=== PATIENT | female | born 1995 | race Caucasian/White ===

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

== ENCOUNTER 2017-11-19 02:23 | Emergency (ER) | payer BC, OTHER ==
[2017-11-19] MEDS ORDERED: METOCLOPRAMIDE HCL INJ/PF 10 MG/2 ML SDV IV ONE (03:15)
--- NOTE | 2017-11-19 03:22 | ER Document Report ---
ED General - General Chief Complaint: Abdominal pain, N/V Stated Complaint: NAUSEA/VOMITING Time Seen by Provider: 11/19/17 03:07 Notes: Patient is a 22-year-old female who recently had a positive test a week and half ago. Tonight she started having epigastric abdominal pain with vomiting. Some pain rating to her lower chest. Says that she has been nauseous for the last several days but did not vomit until tonight. No fevers. No diarrhea. No blood in her stool. No blood in her vomit. She said that she had some vaginal bleeding approximately 3 weeks ago. No vaginal bleeding since then. She said it was just 1 day of vaginal bleeding. She saw her OB doctor in half weeks ago and has a positive . She was given vitamins but she does not want to start taking them until she has a blood test that is positive. This is her first . No abnormal vaginal discharge. No dysuria. TRAVEL OUTSIDE OF THE [place] IN LAST 30 DAYS: No - Related Data Allergies/Adverse Reactions: Penicillins Allergy (Verified 12/23/16 19:05) Past Medical History - Social History Smoking Status: Never Smoker Frequency of alcohol use: None Drug Abuse: None Family History: Reviewed & Not Pertinent, Other - hemophilia Renal/ Medical History: Denies: Hx Peritoneal Dialysis - Immunizations Immunizations up to date: Yes Review of Systems - Review of Systems Notes: My Normal Review Basic REVIEW OF SYSTEMS: CONSTITUTIONAL : Denies fever, chills, or sweats. Denies recent illness. EENT: Denies eye, ear, throat, or mouth pain or symptoms. Denies nasal or sinus congestion. RESPIRATORY: Denies cough, cold, or chest congestion. Denies shortness of breath, difficulty breathing, or wheezing. GASTROINTESTINAL: Epigastric abdominal pain and vomiting. GENITOURINARY: Denies difficulty urinating, painful urination, burning, frequency, or blood in urine. FEMALE GENITOURINARY: Denies vaginal bleeding, abnormal or irregular periods. LMP: Currently . MUSCULOSKELETAL: Denies neck or back pain or joint pain or swelling. SKIN: Denies rash or skin lesions. NEUROLOGICAL: Denies altered mental status or loss of consciousness. Denies headache. Denies weakness or paralysis or loss of use of either side. Denies problems with gait or speech. Denies sensory or motor loss. ALL OTHER SYSTEMS REVIEWED AND NEGATIVE. Physical Exam - Vital signs Vitals: Temp Pulse Resp BP Pulse Ox 98.4 F 100 16 115/67 99 11/19/17 02:51 11/19/17 02:51 11/19/17 02:51 11/19/17 02:51 11/19/17 02:51 - Notes Notes: General Appearance: Well nourished, alert, cooperative, no acute distress, no obvious discomfort. Vitals: reviewed, See vital signs table. Head: no swelling or tenderness to the head Eyes: PERRL, EOMI, Conjuctiva clear Mouth: No decreasd moisture Neck: Supple, no neck tenderness, No thyromegaly Lungs: No wheezing, No rales, No rhonci, No accessory muscle use, good air exchange bilaterally. Heart: Normal rate, Regular rythm, No murmur, no rub Abdomen: Normal BS, soft, No rigidity, mild epigastric abdominal tenderness to palpation, No guarding, no rebound, no abdominal masses, no organomegaly Extremities: strength 5/5 in all extremities, good pulses in all extremities, no swelling or tenderness in the extremities, no edema. Skin: warm, dry, appropriate color, no rash Neuro: speech clear, oriented x 3, normal affect, responds appropriately to questions. Course - Re-evaluation Re-evalutation: 11/19/17 04:18 Patient's last true menstrual period was 2-3 months ago. She did have that one day of heavy bleeding approximately 2-3 weeks ago followed by a positive test just a week and half ago. This suggests to me that she most likely had a very early that resulted in miscarriage. Now her test is negative. She does family history of being Rh-. We will do a program workup because if she is Rh- and did have a miscarriage she should receive RhoGam to protect each her pregnancies. She does have upper abdominal pain with vomiting and some leukocytosis. I will obtain ultrasound to make sure she does not have gallbladder issues causing her symptoms. Patient is agreeable to plan. 11/19/17 06:49 I went to go reevaluate the patient she started vomiting again. Patient says she just started the whole large cup of jovany giselle. She thinks this is why she vomited. Regardless we will give her another dose of medicine and then reassess her and have her try oral liquids. If the patient continues to do well she will be discharged home with follow-up with GI as well as prescription medications. If she does not do well and continues to have nausea vomiting she may eventually be admitted for intractable vomiting. Patient agrees with plan. Patient encouraged to return to ER if she has recurrent vomiting, fevers, worsening abdominal pain, or feels unwell. Dictation of this chart was performed using voice recognition software; therefore, there may be some unintended grammatical errors. - Vital Signs Vital signs: Temp Pulse Resp BP Pulse Ox 98.5 F 100 16 95/66 L 98 11/19/17 08:45 11/19/17 08:45 11/19/17 08:45 11/19/17 08:45 11/19/17 08:45 - Laboratory Result Diagrams: 11/19/17 03:35 11/19/17 03:35 Laboratory results interpreted by me: 11/19/17 03:35 WBC 15.0 H Seg Neutrophils % 86.4 H Lymphocytes % 7.0 L Absolute Neutrophils 13.0 H Discharge - Discharge Clinical Impression: Fatty liver Vomiting Qualifiers: Vomiting type: unspecified Vomiting Intractability: unspecified Nausea presence : with nausea Qualified Code(s): R11.2 - Nausea with vomiting, unspecified Abdominal pain Qualifiers: Abdominal location: epigastric Qualified Code(s): R10.13 - Epigastric pain Disposition: HOME, SELF-CARE Additional Instructions: Your ultrasound does show evidence of a fatty liver. This can be related to diet or potentially something called Non-Alcoholic Steato Hepatitis (PEREZ). Your liver enzymes are normal and therefore I think PEREZ is less likely. It is important you change your diet to avoid fatty foods, fried foods, and acidic foods. I also suspect your pain and vomiting is probably related to gastritis or a non-bleeding ulcer. We will place you on Omeprazole which reduces the amount of acid in your stomach. Your gallbladder did not have any signs of infection or inflammation on the ultrasound. You can still have dysfunction of your gallbladder which is when your gallbladder spasms after eating. I think this is less likely. The work up for fatty liver, gastritis and possible biliary dysfunction can all be done through a GI physician. Please call the GI physician, Dr. Schuler, to set up a close follow up appointment. Please eat a very bland diet and take the medications as prescribed. Please avoid alcohol and NSAID medications such as Motrin, Ibuprofen, and Aleve. Please return to the ER immediately if you have recurrent vomiting not responding to the nausea medicines, worsening abdominal pain, or fevers. Your test was negative. I suspect you had a very early miscarriage. We have given you rhogam which protects your future pregnancies. Prescriptions: Omeprazole Magnesium [Prilosec Otc] 20 mg PO BID #30 tablet. Ondansetron [Zofran Odt 4 mg Tablet] 1 tab PO Q4H PRN #15 tab.rapdis PRN Reason: For Nausea/Vomiting Promethazine HCl [Phenergan 25 mg Tablet] 1 tab PO Q6H PRN #15 tablet PRN Reason: Forms: Special Work Note, Return to Work Referrals: DIANNA SCHULER MD [ACTIVE STAFF] - Follow up in 3-5 days
[2017-11-19 03:53] LABS: ABSOLUTE LYMPHOCYTES (AUTO) 1.1 10^3/uL (0.5-4.7); ABSOLUTE MONOCYTES (AUTO) 0.9 10^3/uL (0.1-1.4); BASOPHILS % (AUTO) 0.2 % (0-2); EOSINOPHILS % (AUTO) 0.3 % (0-6); HEMATOCRIT 38.7 % (36.0-47.0); HEMOGLOBIN 13.1 g/dL (12.0-15.5); MEAN CORPUSCULAR HEMOGLOBIN 30.3 pg (27.0-33.4); MEAN CORPUSCULAR HGB CONC 33.8 g/dL (32.0-36.0); MEAN CORPUSCULAR VOLUME 89 fl (80-97); MONOCYTES % (AUTO) 6.1 % (3-13); PLATELET COUNT 279 10^3/uL (150-450); RED BLOOD COUNT 4.33 10^6/uL (3.72-5.28); RED CELL DISTRIBUTION WIDTH 12.5 % (11.5-14.0); SEGMENTED NEUTROPHILS % (AUTO) 86.4 % (42-78); TOTAL CELLS COUNTED % (AUTO) 100 %
[2017-11-19 03:56] LABS: ALANINE AMINOTRANSFERASE 27 U/L (9-52); ALBUMIN 4.2 g/dL (3.5-5.0); ALKALINE PHOSPHATASE 55 U/L (38-126); ANION GAP 10 (5-19); ASPARTATE AMINO TRANSFERASE 17 U/L (14-36); BILIRUBIN,TOTAL 0.4 mg/dL (0.2-1.3); BLOOD UREA NITROGEN 10 mg/dL (7-20); CALCIUM 9.5 mg/dL (8.4-10.2); CARBON DIOXIDE 24 mmol/L (22-30); CHLORIDE 106 mmol/L (98-107); GLUCOSE 95 mg/dL (75-110); POTASSIUM 4.1 mmol/L (3.6-5.0); SODIUM 140.2 mmol/L (137-145); TOTAL PROTEIN 6.4 g/dL (6.3-8.2)
[2017-11-19] MEDS: NORMAL SALINE 1000 ML 1,000 ML IV PRN ×2 (04:15→04:36)
[2017-11-19 06:12] LABS: APPEARANCE,URINE CLEAR; BILIRUBIN,URINE NEGATIVE (NEGATIVE); GLUCOSE, URINE NEGATIVE (NEGATIVE); KETONES,URINE NEGATIVE (NEGATIVE); LEUKOCYTE ESTERASE,URINE NEGATIVE (NEGATIVE); NITRITE,URINE NEGATIVE (NEGATIVE); PROTEIN,URINE NEGATIVE (NEGATIVE); URINE SPECIFIC GRAVITY 1.009; UROBILINOGEN,URINE NEGATIVE mg/dL (<2.0)
--- NOTE | 2017-11-19 06:20 | RADIOLOGY REPORT (SQ) ---
EXAM DESCRIPTION: U/S ABDOMEN LTD W/DOPPLER CLINICAL HISTORY: 22 years, Female, upper abdominal pain and vomiting COMPARISON: None. TECHNIQUE: Transabdominal. LIMITATIONS: None. FINDINGS: Moderate hepatic steatosis. Gallbladder, negative sonographic Cmbride's test, pancreas, aorta, inferior-extrahepatic biliary ductal system including a 0.2 cm diameter common duct, and 10 cm right kidney appear otherwise unremarkable. No significant free fluid. IMPRESSION: No acute findings. Moderate hepatic steatosis.
[2017-11-19 06:21] LABS: COLOR,URINE YELLOW
[2017-11-19] MEDS ORDERED: ONDANSETRON HCL INJ/PF 4 MG/2 ML SDV IV ONE (06:28)
[2017-11-19] MEDS ORDERED: PROMETHAZINE HCL INJ 25 MG/1 ML VIAL IM ONE (06:28)
[2017-11-19 08:47] VITALS: BP 95/66
== END 2017-11-19 08:45 | disposition home or self-care (01) ==
LOC: ER 02:23
DX: O26.91 Pregnancy related conditions, unspecified, first trimester (principal); K76.0 Fatty (change of) liver, not elsewhere classified; R10.13 Epigastric pain; O21.9 Vomiting of pregnancy, unspecified; Z88.0 Allergy status to penicillin
CPT/HCPCS: 99284; 96372; 96374; 86900; 86901; 36415; 86850; 84702; 83735; 85025; 80053; 81001; 76705; 93976; J2790; J2765; J2550; J2405; J7030

== ENCOUNTER → 2017-11-28 | Day surgery (SDC) | payer OTHER ==
[2017-11-28 08:53] VITALS: BP 111/62
--- NOTE | 2017-11-28 11:35 | PDOC PROGRESS REPORT ---
Subjective Progress Note for:: 11/28/17 Subjective:: Patient was seen prior to her upper endoscopy this morning. She underwent a urine test that showed that she was positive. Anesthesia saw her. She would not be able to be sedated with propofol. Prior to her leaving I had asked her about her possible history and date. She apparently presented in the middle of October with vaginal bleeding. She was seen in the ED. She underwent at that time a urine test. She was told that she had a miscarriage. Patient was given some RhoGam. She underwent a quantitative H CG today. It was noted at 362. She will need to be referred to OB. The procedure was deferred. She was being seen for noncardiac chest pain, gastroesophageal reflux disease. Discharge vital signs were stable. We will go ahead and reschedule her procedure as needed. Reason For Visit: R10.13 EPIGASTRIC PAIN Physical Exam Vital Signs: Temp Pulse Resp BP Pulse Ox 98.6 F 83 18 111/62 98 11/28/17 08:51 11/28/17 08:51 11/28/17 08:51 11/28/17 08:51 11/28/17 08:51 Intake & Output 11/27/17 11/28/17 11/29/17 06:59 06:59 06:59 Intake Total 0 Balance 0 Weight 63.5 kg 63.5 kg General appearance: PRESENT: no acute distress, well-developed, well-nourished Head exam: PRESENT: atraumatic, normocephalic Eye exam: PRESENT: EOMI, PERRLA. ABSENT: nystagmus, periorbital swelling, scleral icterus Mouth exam: PRESENT: moist, neck supple Neck exam: ABSENT: meningismus, tenderness, thyromegaly Respiratory exam: PRESENT: symmetrical, unlabored. ABSENT: tachypnea, wheezes Cardiovascular exam: PRESENT: +S1, +S2 GI/Abdominal exam: PRESENT: soft. ABSENT: rebound, rigid, tenderness Extremities exam: ABSENT: tenderness Musculoskeletal exam: PRESENT: full ROM Neurological exam: PRESENT: oriented to time, oriented to situation, CN II-XII grossly intact Psychiatric exam: PRESENT: appropriate affect Skin exam: PRESENT: normal color. ABSENT: mottled, pallor, urticaria, vesicles Assessment & Plan - Diagnosis (1) Positive urine test Plan: Patient had a positive urine test prior to her being sedated for planned procedure. Procedure was canceled based on the assumption that she was . She was told that she had a miscarriage in the past. Her beta hCG is 362. Based on her recollection of events it is unclear if this represents a value that is decreasing or increasing. Would be advisable to have her see FRENCH WEAVER. Recheck her quantitative hCG on Friday. Further recommendations to follow. - Time Time Spent with patient: 25-34 minutes
== END ==
LOC: OROUT 08:23
PROVIDERS: ATTEND Internal Medicine Gastroenterology
DX: Z32.01 Encounter for pregnancy test, result positive (principal); Z53.8 Procedure and treatment not carried out for other reasons; K21.9 Gastro-esophageal reflux disease without esophagitis; R07.89 Other chest pain
CPT/HCPCS: 36415; 81025; 84702

== ENCOUNTER 2018-07-08 16:35 | Outpatient (CLI) | payer MEDICAID, OTHER ==
[2018-07-08 17:34] LABS: URINE AMPHETAMINES SCREEN NEGATIVE; URINE BARBITURATES SCREEN NEGATIVE; URINE BENZODIAZEPINES SCREEN NEGATIVE; URINE COCAINE SCREEN NEGATIVE; URINE MARIJUANA (THC) SCREEN NEGATIVE; URINE METHADONE SCREEN NEGATIVE; URINE PHENCYCLIDINE SCREEN NEGATIVE
[2018-07-08 17:36] LABS: APPEARANCE,URINE CLEAR; BILIRUBIN,URINE NEGATIVE (NEGATIVE); COLOR,URINE YELLOW; GLUCOSE, URINE NEGATIVE (NEGATIVE); KETONES,URINE NEGATIVE (NEGATIVE); LEUKOCYTE ESTERASE,URINE TRACE (NEGATIVE); NITRITE,URINE NEGATIVE (NEGATIVE); PROTEIN,URINE NEGATIVE (NEGATIVE); URINE SPECIFIC GRAVITY 1.016
== END 2018-07-08 18:09 | disposition home or self-care (01) ==
LOC: ER 16:35 → LC 18:09
PROVIDERS: ATTEND Student in an Organized Health Care Education/Training Program
PROC: 4A1HXCZ Monitoring of Products of Conception, Cardiac Rate, External Approach (ICD-10-PCS; principal; 2018-07-08)
DX: Z34.93 Encounter for supervision of normal pregnancy, unspecified, third trimester (principal)
CPT/HCPCS: 59025; 80307; 81001; 84112

== ENCOUNTER 2018-07-23 12:21 | Outpatient (CLI) | payer MEDICAID ==
[2018-07-23 13:07] LABS: APPEARANCE,URINE CLEAR; BILIRUBIN,URINE NEGATIVE (NEGATIVE); COLOR,URINE COLORLESS; GLUCOSE, URINE NEGATIVE (NEGATIVE); KETONES,URINE NEGATIVE (NEGATIVE); LEUKOCYTE ESTERASE,URINE NEGATIVE (NEGATIVE); NITRITE,URINE NEGATIVE (NEGATIVE); PROTEIN,URINE NEGATIVE (NEGATIVE); URINE SPECIFIC GRAVITY 1.002; UROBILINOGEN,URINE NEGATIVE mg/dL (<2.0)
--- NOTE | 2018-07-23 14:04 | Non Stress Test Report ---
Non Stress Test Datetime Report Generated by CPN: 07/23/2018 14:04 DEMOGRAPHIC EGA NST: 37.4 INDICATION Indication for Study: Other Indication for Study (NST) Other: LABOR CHECK MONITORING Monitor Explained: Monitor Explained; Test Explained; Patient Verbalized Understanding Time on Monitor: 07/23/2018 12:48 Time off Monitor: 07/23/2018 13:48 NST Duration: 60 NST INTERVENTIONS NST Interventions: PO Hydration; Reposition Patient Physician Notified NST: DR SANTA BABY A: [id number] BABY A Movement : Present Contraction Frequency : X 1 FHR Baseline : 145 Accelerations : 15X15 Decelerations : None Variability : Moderate 6-25bpm NST Review: Meets Criteria for Reactive NST NST Review and Verified By : Analisa Camp RNC NST Results: Reactive NST REPORT Report Trigger: Send Report
[2018-07-23 14:38] LABS: URINE AMPHETAMINES SCREEN NEGATIVE; URINE BARBITURATES SCREEN NEGATIVE; URINE BENZODIAZEPINES SCREEN NEGATIVE; URINE COCAINE SCREEN NEGATIVE; URINE MARIJUANA (THC) SCREEN NEGATIVE; URINE METHADONE SCREEN NEGATIVE
[2018-07-23 14:46] LABS: URINE PHENCYCLIDINE SCREEN NEGATIVE
== END 2018-07-23 13:57 | disposition home or self-care (01) ==
LOC: LC 12:21
PROVIDERS: ATTEND Student in an Organized Health Care Education/Training Program
PROC: 4A1HXCZ Monitoring of Products of Conception, Cardiac Rate, External Approach (ICD-10-PCS; principal; 2018-07-23)
DX: O47.1 False labor at or after 37 completed weeks of gestation (principal); Z3A.37 37 weeks gestation of pregnancy
CPT/HCPCS: 59025; 80307; 81005

== ENCOUNTER 2018-08-07 23:06 | Outpatient (CLI) | payer MEDICAID ==
[2018-08-07 23:32] LABS: APPEARANCE,URINE TURBID; BILIRUBIN,URINE NEGATIVE (NEGATIVE); COLOR,URINE YELLOW; GLUCOSE, URINE NEGATIVE (NEGATIVE); KETONES,URINE NEGATIVE (NEGATIVE); LEUKOCYTE ESTERASE,URINE TRACE (NEGATIVE); NITRITE,URINE NEGATIVE (NEGATIVE); PROTEIN,URINE NEGATIVE (NEGATIVE); URINE SPECIFIC GRAVITY 1.015
[2018-08-07 23:49] LABS: URINE AMPHETAMINES SCREEN NEGATIVE; URINE BARBITURATES SCREEN NEGATIVE; URINE BENZODIAZEPINES SCREEN NEGATIVE; URINE COCAINE SCREEN NEGATIVE; URINE MARIJUANA (THC) SCREEN NEGATIVE; URINE METHADONE SCREEN NEGATIVE; URINE PHENCYCLIDINE SCREEN NEGATIVE
--- NOTE | 2018-08-08 02:09 | Non Stress Test Report ---
Non Stress Test Datetime Report Generated by CPN: 08/08/2018 02:09 DEMOGRAPHIC Test Number: 3 EGA NST: 39.5 INDICATION Indication for Study: Other Indication for Study (NST) Other: Labor Check VITAL SIGNS Temperature - NST: 96.7 Pulse - NST: 96 RESP - NST: 14 NBPSYS NST: 119 NBPDIA NST: 73 URINE RESULTS Urine Protein, NST: Negative Urine Ketones - NST: Negative Urine Glucose - NST: Negative Urine Blood - NST: Negative MONITORING Monitor Explained: Monitor Explained; Test Explained; Patient Verbalized Understanding Time on Monitor: 08/07/2018 21:32 Time off Monitor: 08/08/2018 00:58 NST Duration: 206 NST INTERVENTIONS NST Interventions: PO Hydration Physician Notified NST: Dr. Albert BABY A: [id number] BABY A Movement : Present Contraction Frequency : None noted FHR Baseline : 145 Accelerations : 15X15 Decelerations : None Variability : Moderate 6-25bpm NST Review: Meets Criteria for Reactive NST NST Review and Verified By : KKristen Montanezco, RN NST Results: Reactive NST REPORT Report Trigger: Send Report
== END 2018-08-08 01:17 | disposition home or self-care (01) ==
LOC: LC 23:06
PROVIDERS: ATTEND Obstetrics & Gynecology
PROC: 4A1HXCZ Monitoring of Products of Conception, Cardiac Rate, External Approach (ICD-10-PCS; principal; 2018-08-07)
DX: O46.93 Antepartum hemorrhage, unspecified, third trimester (principal); Z3A.39 39 weeks gestation of pregnancy
CPT/HCPCS: 59025; 80307; 81005

== ENCOUNTER 2018-08-08 21:25 | Inpatient (IN) | payer MEDICAID ==
[2018-08-08] MEDS ORDERED: RINGERS SOLUTION,LACTATED 1,000 ML IV PRN (22:04)
[2018-08-08] MEDS ORDERED: OXYTOCIN 10 UNIT/ML VIAL ONE (22:16)
[2018-08-08] MEDS ORDERED: MISOPROSTOL 0.2 MG TABLET ONE (22:16)
[2018-08-08] MEDS ORDERED: LIDOCAINE 1% INJ-PF (10 MG/ML) 30 ML SDV ONE (22:16)
[2018-08-08] MEDS ORDERED: OXYTOCIN/NORMAL SALINE 20 UNIT/1,000 ML RTUINJ ONE (22:16)
[2018-08-08 23:28] LABS: HEMATOCRIT 34.1 % (36.0-47.0); HEMOGLOBIN 11.1 g/dL (12.0-15.5); MEAN CORPUSCULAR HEMOGLOBIN 26.1 pg (27.0-33.4); MEAN CORPUSCULAR HGB CONC 32.4 g/dL (32.0-36.0); MEAN CORPUSCULAR VOLUME 81 fl (80-97); PLATELET COUNT 233 10^3/uL (150-450); RED BLOOD COUNT 4.23 10^6/uL (3.72-5.28); RED CELL DISTRIBUTION WIDTH 15.6 % (11.5-14.0); WHITE BLOOD COUNT 24.5 10^3/uL (4.0-10.5)
[2018-08-09 00:07] LABS: ABSOLUTE LYMPHOCYTES# (MANUAL) 2.2 10^3/uL (0.5-4.7); ABSOLUTE MONOCYTES # (MANUAL) 1.2 10^3/uL (0.1-1.4); ABSOLUTE NEUTROPHILS# (MANUAL) 21.1 10^3/uL (1.7-8.2); BASOPHILS % (MANUAL) 0 % (0-2); EOSINOPHILS % (MANUAL) 0 % (0-6); LYMPHOCYTES % (MANUAL) 9 % (13-45); MONOCYTES % (MANUAL) 5 % (3-13); SEGMENTED NEUTROPHILS % (MAN) 86 % (42-78); TOTAL CELLS COUNTED 100
[2018-08-09 00:08] LABS: ANISOCYTOSIS SLIGHT; PLATELET COMMENT ADEQUATE; PLATELET GIANT PRESENT; POIKILOCYTOSIS SLIGHT; POLYCHROMASIA SLIGHT; TOXIC GRANULATION SLIGHT; TOXIC VACUOLATION PRESENT
--- NOTE | 2018-08-09 01:13 | Admission Physical ---
Datetime Report Generated by CPN: 08/09/2018 01:13 CURRENT ADMISSION Chief Complaint: Uterine Contractions Indication for Induction: Not Applicable Admit Impression : Term, Intrauterine ; Active Labor; Intact Membranes Admit Plan: Admit to Unit; Initiate Labor Protocol ALLERGIES Medication Allergies: Yes Medication Allergies: Penicillins (08/08/2018) Latex: No Latex Allergies OBSTETRICAL HISTORY EDC: 08/09/2018 00:00 : 1 Para: 0 Term: 0 : 0 SAB: 0 IAB: 0 Ectopic: 0 Livin Cesareans: 0 VBACs: 0 Multiple Births: 0 Gestational Diabetes: No Rh Sensitization: No Incompetent Cervix: No ZAIDA: No Infertility: No ART Treatment: No Uterine Anomaly: No IUGR: No Hx Previous C/S: No Macrosomia: No Hx Loss/Stillborn: No PIH: No Hx : No Placenta Previa/Abruption: No Depression/PP Depression: No PTL/PROM: No Post Hemorrhage: No Current Procedures: Ultrasound; NST Obstetrical History Comments: G1: current SEE RECORDS Alcohol: No Marijuana : No Cocaine: No Other Illicit Drugs: No Cigarettes: Never Smoker. [id number] MEDICAL HISTORY Diabetes: No Blood Transfusion: No Pulmonary Disease (Asthma, TB): No Breast Disease: No Hypertension: No Emblem Drawer In Surgery: No Heart Disease: No Hosp/Surgery: No Autoimmune Disorder: No Anesthetic Complications: No Kidney Disease: No Abnormal Pap Smear: No Neuro/Epilepsy: No Psychiatric Disorders: No Other Medical Diseases: No Hepatitis/Liver Disease: No Significant Family History: No Varicosities/Phlebitis: No Trauma/Violence : No Thyroid Dysfunction: No INFECTIOUS HISTORY Gonorrhea: No Genital Herpes: No Chlamydia: No Tuberculosis: No Syphilis: No Hepatitis: No HIV/AIDS Exposure: No Rash or Viral Illness: No HPV: No PHYSICAL EXAM General: Normal HEENT: Normal Neurologic: Normal Heart: Normal Lungs: Normal Abdomen: Normal Genitourinary Exam: Normal Extremities: Normal Pelvic Type: Adequate Vital Signs: Reviewed; Within Normal Limits VAGINAL EXAM Dilatation: 7 Effacement: 100 Station: 0 Contraction Comments: q 2 min MEMBRANES Membranes: Ruptured Amniotic Fluid Color: Clear FETUS A EGA: 40.0 Monitoring: External US FHR- Baseline: 120 Variability: Moderate 6-25bpm Accelerations: 15X15 Decelerations: None FHR Category: Category I Presentation: Vertex PLANS FOR LABOR AND DELIVERY Labor and Delivery: None Pain Management: None Feeding Preference: Breast Benefit of Breast Feed Discussed: Yes Circumcision: N/A INFORMED CONSENT Signature: with User ID: [email or web address]
[2018-08-09] MEDS ORDERED: ONDANSETRON HCL 8 MG TABLET PO PRN (01:21)
[2018-08-09] MEDS ORDERED: DIPHENHYDRAMINE HCL 25 MG CAPSULE PO PRN (01:21)
[2018-08-09] MEDS ORDERED: FAMOTIDINE 20 MG TABLET PO PRN (01:22)
[2018-08-09] MEDS ORDERED: OXYTOCIN/NORMAL SALINE 20 UNIT/1,000 ML RTUINJ IV PRN (01:53)
[2018-08-09] MEDS ORDERED: BENZOCAINE/MENTHOL AEROSOL SPRAY 56 ML TOP PRN (01:53)
[2018-08-09] MEDS ORDERED: DIBUCAINE 1% OINTMENT 28 GM TP PRN (01:53)
[2018-08-09] MEDS ORDERED: ACETAMINOPHEN WITH CODEINE #3 TABLET PO PRN ×2 (01:53)
[2018-08-09] MEDS ORDERED: ZOLPIDEM TARTRATE 5 MG TABLET PO PRN (01:53)
[2018-08-09] MEDS ORDERED: DIPH/PERTUSS(ACELL)/TETANUS VAC/PF 0.5 ML SYR (>=10YO) IM PRN (01:53)
[2018-08-09] MEDS ORDERED: MEASLES,MUMPS&RUBELLA VACC/PF 0.5 ML VIAL SUBCUT PRN (01:53)
[2018-08-09] MEDS: IBUPROFEN 800 MG TABLET PO SCH ×3 (05:30→21:43)
[2018-08-09] MEDS: PRENATAL VITAMIN W DHA CAPSULE PO SCH (10:00)
[2018-08-09] MEDS: FERROUS SULFATE 325 MG TABLET PO SCH ×2 (10:00→17:04)
[2018-08-09] MEDS: SENNOSIDES/DOCUSATE 8.6-50 MG 1 EACH TABLET PO SCH (10:00)
[2018-08-09] MEDS: DOCUSATE SODIUM 100 MG CAPSULE PO SCH ×2 (10:00→17:04)
--- NOTE | 2018-08-09 10:58 | PDOC PROGRESS REPORT ---
Subjective-OB Progress Note for:: 08/09/18 Subjective: Pt doing well, no concerns. She reports light bleeding, reg diet and voiding without difficulty. Bonding with baby. Physical Exam (OB) Vital Signs: Temp Pulse Resp BP Pulse Ox 98.3 F 91 18 111/73 99 08/09/18 07:28 08/09/18 07:28 08/09/18 07:28 08/09/18 07:28 08/09/18 07:28 Intake & Output 08/08/18 08/09/18 08/10/18 07:59 06:59 06:59 Intake Total 500 Balance 500 - Abdomen Description: Tender, Soft Hernia Present: No Fundal Description: Firm, Midline Fundal Height: u/u - u/2 Objective-Diagnostic Laboratory: 08/08/18 22:50 08/08/18 08/08/18 08/09/18 22:50 22:50 06:32 WBC 24.5 H RBC 4.23 Hgb 11.1 L Hct 34.1 L MCV 81 MCH 26.1 L MCHC 32.4 RDW 15.6 H Plt Count 233 Seg Neutrophils % Not Reportable Lymphocytes % Not Reportable Monocytes % Not Reportable Eosinophils % Not Reportable Basophils % Not Reportable Absolute Neutrophils Not Reportable Absolute Lymphocytes Not Reportable Absolute Monocytes Not Reportable Absolute Eosinophils Not Reportable Absolute Basophils Not Reportable Blood Type O NEGATIVE O NEGATIVE Antibody Screen POSITIVE Assessment and Plan(PN) - Assessment and Plan (1) Vaginal delivery Is this a current diagnosis for this admission?: Yes - Time Spent with Patient Time with patient: Less than 15 minutes Medications reviewed and adjusted accordingly: Yes - Disposition Anticipated Discharge: Home Within: within 24 hours
[2018-08-10] MEDS: IBUPROFEN 800 MG TABLET PO SCH (06:09)
[2018-08-10 07:39] LABS: HEMOGLOBIN 9.3 g/dL (12.0-15.5); MEAN CORPUSCULAR HEMOGLOBIN 26.9 pg (27.0-33.4); MEAN CORPUSCULAR HGB CONC 33.2 g/dL (32.0-36.0); MEAN CORPUSCULAR VOLUME 81 fl (80-97); PLATELET COUNT 187 10^3/uL (150-450); RED BLOOD COUNT 3.46 10^6/uL (3.72-5.28); RED CELL DISTRIBUTION WIDTH 15.4 % (11.5-14.0); WHITE BLOOD COUNT 13.4 10^3/uL (4.0-10.5)
[2018-08-10] MEDS: SENNOSIDES/DOCUSATE 8.6-50 MG 1 EACH TABLET PO SCH (09:28)
[2018-08-10] MEDS: DOCUSATE SODIUM 100 MG CAPSULE PO SCH (09:28)
[2018-08-10] MEDS: PRENATAL VITAMIN W DHA CAPSULE PO SCH (09:28)
[2018-08-10] MEDS: FERROUS SULFATE 325 MG TABLET PO SCH (09:28)
--- NOTE | 2018-08-10 09:58 | PDOC DISCHARGE SUMMARY ---
Final Diagnosis Discharge Date: 08/10/18 Discharge Data - Discharge Medication Prescriptions: Ibuprofen [Motrin 800 mg Tablet] 800 mg PO Q8HP PRN #60 tablet PRN Reason: Home Medications: Vit Calc,Iron,Folic [ Vitamins] 1 tab PO DAILY 07/08/18 Ferrous Sulfate [Feosol 325 mg Tablet] 325 mg PO BID tablet 08/10/18 Ibuprofen [Motrin 800 mg Tablet] 800 mg PO Q8HP PRN #60 tablet 08/10/18 Procedures: NST Intrapartum Procedure(s): Spontaneous Vaginal Delivery Laceration-Degree: 1st - Diagnosis Test Laboratory: Temp Pulse Resp BP Pulse Ox 98.2 F 82 15 115/71 99 08/10/18 08:45 08/10/18 08:45 08/10/18 08:45 08/10/18 08:45 08/10/18 08:45 08/08/18 08/10/18 22:50 07:24 RBC 4.23 3.46 L Hgb 11.1 L 9.3 L Hct 34.1 L 28.0 L - Discharge information/Instructions Discharge Activity: Balance Activity w/Rest, Pelvic Rest Discharge Diet: Regular Disposition: HOME, SELF-CARE Follow up with: [facility] in: 4, Weeks
[2018-08-10 11:58] VITALS: BP 115/75
--- NOTE | 2018-08-14 13:25 | Delivery Summary ---
Del Sum A-C Datetime Report Generated by CPN: 08/14/2018 13:24 DELIVERY PERSONNEL DELIVERY PERSONNEL: [id number] Delivery Doctor:: Ozzy Zhu MD Labor and Delivery Nurse:: Nichole Mari RN Nursery Nurse:: Tracy Altamirano, RN MATERNAL INFORMATION Delivery Anesthesia: None Medications After Delivery: Pitocin Bolus-Please Comment Meds After Delivery Comment: 20 units in 100 ml NS Estimated Blood Loss (ml): 100 Maternal Complications: None Provider Comments: Pt C_P. Head delivered OA. Anterior and posterior shoulder delivered followed by rest of body. Baby placed on mom's abdomen. After 1 min, cord clamped x 2 and cut. Placenta delivered with 3VC. Lacs repaired as above. LABOR SUMMARY EDC: 08/09/2018 00:00 No. Babies in Womb: 1 Attempted: No Labor Anesthesia: None LABOR INFORMATION Reason for Induction: Not Applicable Onset of Labor: 08/08/2018 19:30 Complete Dilatation: 08/08/2018 23:00 Oxytocin: N/A Group B Beta Strep: NEGATIVE Steroids Given: None Reason Steroids Not Administered: Not Applicable MEMBRANES Membranes Rupture Method: Spontaneous Rupture of Membranes: 08/08/2018 22:16 Length of Rupture (hr): 1.15 Amniotic Fluid Color: Clear Amniotic Fluid Amount: Small Amniotic Fluid Amount: None Amniotic Fluid Odor: Normal STAGES OF LABOR Stage 1 hr: 3 Stage 1 min: 30 Stage 2 hr: 0 Stage 2 min: 25 Stage 3 hr: 0 Stage 3 min: 10 Total Time in Labor hr: 4 Total Time in Labor min: 5 VAGINAL DELIVERY Episiotomy: None Laceration #1: Vaginal Laceration Extension #1: First Degree Other Laceration: Bilateral labial Laceration Repair: Yes Laceration Repair Note: Single interrupted stitch at vaginal introitus with 2.0 Vicryl. Labial lacs repaired with 3.0 Vicryl in interrupted fashion. Sponge Count Correct: N/A Sharps Count Correct: N/A BABY A INFORMATION Delivery Date/Time: 08/08/2018 23:25 Method of Delivery: Vaginal Born in Route : No : N/A Forceps: N/A Vacuum Extraction: N/A Shoulder Dystocia : No PRESENTATION/POSITION BABY A Presentation: Cephalic Cephalic Presentation: Vertex Vertex Position: Left Occipital Anterior Breech Presentation: N/A PLACENTA INFORMATION BABY A Placenta Delivery Time : 08/08/2018 23:35 Placenta Method of Delivery: Spontaneous Placenta Status: Delivered SCORES BABY A Heart Rate 1 min: >100 bpm Resp Effort 1 min: Good Cry Reflex Irritability 1 min: Cough or Sneeze or Pulls Away Muscle Tone 1 min: Active Motion Color 1 min: Body Colbert, Extremities Blue Resuscitation Effort 1 min: Tactile Stimulation SCORE 1 MIN: 9 Heart Rate 5 min: >100 bpm Resp Effort 5 min: Good Cry Reflex Irritability 5 min: Cough or Sneeze or Pulls Away Muscle Tone 5 min: Active Motion Color 5 min: Body Colbert, Extremities Blue Resuscitation Effort 5 min: Tactile Stimulation SCORE 5 MIN: 9 INFANT INFORMATION BABY A Gestational Age at Delivery: 39.6 Gestational Status: Full Term- 39- 40.6 Weeks Outcome : Liveborn Condition : Stable Sex: Female IDENTIFICATION BABY A Verification Date/Time: 08/08/2018 23:31 ID Band Number: [id number] Mother's Name Verified: Yes Infant RN Verifying : Edilia Mari SOCO Additional Verifying Personnel: jayy HungKristen RN WEIGHT/LENGTH BABY A Birthweight (gm): 2750 Weight (lb): 6 Weight (oz): 1 Length (in): 20.00 Infant Length (cm): 50.80 CORD INFORMATION BABY A No. Cord Vessels: 3 Nuchal Cord : Around Neck x1, Loose Cord Blood Taken: Yes-For Eval (Mom's Blood Type - or O+) Suction: Mouth; Nose SIGNATURES Signature: with User ID: [email or web address] : I was personally available for consultation and serving as supervising physician for the MLP. : I was personally available for consultation and serving as supervising physician for the MLP.
== END 2018-08-10 12:52 | disposition home or self-care (01) | DRG 807 ==
LOC: LC 21:25 → LR 22:11 → 2S 08-09 01:41
PROVIDERS: ADMIT Obstetrics & Gynecology; ATTEND Obstetrics & Gynecology
PROC: 10E0XZZ Delivery of Products of Conception, External Approach (ICD-10-PCS; principal; 2018-08-08)
PROC: 0HQ9XZZ Repair Perineum Skin, External Approach (ICD-10-PCS; 2018-08-08)
PROC: 4A1HXCZ Monitoring of Products of Conception, Cardiac Rate, External Approach (ICD-10-PCS; 2018-08-08)
PROC: 3E0234Z Introduction of Serum, Toxoid and Vaccine into Muscle, Percutaneous Approach (ICD-10-PCS; 2018-08-10)
PROC: 3E02340 Introduction of Influenza Vaccine into Muscle, Percutaneous Approach (ICD-10-PCS; 2018-08-10)
DX: O70.0 First degree perineal laceration during delivery (principal); Z37.0 Single live birth; O69.81X0 Labor and delivery complicated by cord around neck, without compression, not applicable or unspecified; Z3A.39 39 weeks gestation of pregnancy; Z88.0 Allergy status to penicillin; Z23 Encounter for immunization
CPT/HCPCS: 36415; 59025; 85025; 85027; 85461; 86592; 86850; 86870; 86900; 86901; 90471; 90686; 90707; G0008; J2590; J2790; J3490

== ENCOUNTER 2019-08-18 20:46 | Emergency (ER) | payer SELFPAY ==
--- NOTE | 2019-08-18 20:58 | ER Document Report ---
ED Medical Screen (RME) - General Chief Complaint: Flank Pain Stated Complaint: ABDOMINAL PAIN/BACK PAIN Time Seen by Provider: 08/18/19 20:53 Primary Care Provider: DIANNA SCHULER MD [Primary Care Provider] - Follow up as needed Mode of Arrival: Ambulatory Information source: Patient Notes: 24-year-old female presents emergency department with complaints of right flank right upper quad abdominal epigastric pain for the past 2 weeks. Reports it hurts more after she eats. Denies fever vomiting diarrhea. Reports voiding and bowel movements normal. Right upper quad epigastric area tender to palpate. Abdomen soft I have greeted and performed a rapid initial assessment of this patient. A comprehensive ED assessment and evaluation of the patient, analysis of test results and completion of the medical decision making process will be conducted by additional ED providers. Dictation of this chart was performed using voice recognition software; therefore, there may be some unintended grammatical errors. TRAVEL OUTSIDE OF THE [place] IN LAST 30 DAYS: No - Related Data Allergies/Adverse Reactions: Penicillins Allergy (Verified 08/08/18 00:09) Past Medical History - Social History Chew tobacco use (# tins/day): No Drug Abuse: None - Past Medical History Cardiac Medical History: Denies: Hx Coronary Artery Disease, Hx Heart Attack, Hx Hypertension Pulmonary Medical History: Denies: Hx Asthma, Hx Bronchitis, Hx COPD, Hx Pneumonia Neurological Medical History: Denies: Hx Cerebrovascular Accident, Hx Seizures Renal/ Medical History: Denies: Hx Peritoneal Dialysis Musculoskeltal Medical History: Denies Hx Arthritis - Immunizations Immunizations up to date: Yes Hx Diphtheria, Pertussis, Tetanus Vaccination: Yes Physical Exam - Vital signs Vitals: Temp Pulse Resp BP Pulse Ox 98.1 F 95 20 109/74 100 08/18/19 20:53 08/18/19 20:53 08/18/19 20:53 08/18/19 20:53 08/18/19 20:53 Course - Vital Signs Vital signs: Temp Pulse Resp BP Pulse Ox 98.1 F 95 20 109/74 100 08/18/19 20:53 08/18/19 20:53 08/18/19 20:53 08/18/19 20:53 08/18/19 20:53 Doctor's Discharge - Discharge Referrals: DIANNA SCHULER MD [Primary Care Provider] - Follow up as needed
[2019-08-18 21:19] LABS: APPEARANCE,URINE CLEAR; BILIRUBIN,URINE NEGATIVE (NEGATIVE); COLOR,URINE YELLOW; GLUCOSE, URINE NEGATIVE (NEGATIVE); KETONES,URINE NEGATIVE (NEGATIVE); LEUKOCYTE ESTERASE,URINE NEGATIVE (NEGATIVE); NITRITE,URINE NEGATIVE (NEGATIVE); PROTEIN,URINE NEGATIVE (NEGATIVE); URINE SPECIFIC GRAVITY 1.017; UROBILINOGEN,URINE NEGATIVE mg/dL (<2.0)
[2019-08-18 21:20] LABS: ABSOLUTE BASOPHILS # (AUTO) 0.1 10^3/uL (0.0-0.2); ABSOLUTE LYMPHOCYTES (AUTO) 3.1 10^3/uL (0.5-4.7); ABSOLUTE MONOCYTES (AUTO) 0.8 10^3/uL (0.1-1.4); BASOPHILS % (AUTO) 0.6 % (0-2); EOSINOPHILS % (AUTO) 0.4 % (0-6); HEMATOCRIT 38.9 % (36.0-47.0); HEMOGLOBIN 13.2 g/dL (12.0-15.5); MEAN CORPUSCULAR HEMOGLOBIN 29.8 pg (27.0-33.4); MEAN CORPUSCULAR VOLUME 88 fl (80-97); MONOCYTES % (AUTO) 6.9 % (3-13); PLATELET COUNT 315 10^3/uL (150-450); RED BLOOD COUNT 4.44 10^6/uL (3.72-5.28); RED CELL DISTRIBUTION WIDTH 13.7 % (11.5-14.0); SEGMENTED NEUTROPHILS % (AUTO) 64.1 % (42-78); TOTAL CELLS COUNTED % (AUTO) 100 %
[2019-08-18 21:31] LABS: ALBUMIN 4.5 g/dL (3.5-5.0); ALKALINE PHOSPHATASE 88 U/L (38-126); ANION GAP 10 (5-19); ASPARTATE AMINO TRANSFERASE 15 U/L (14-36); BILIRUBIN,DIRECT 0.1 mg/dL (0.0-0.4); BILIRUBIN,TOTAL 0.3 mg/dL (0.2-1.3); BLOOD UREA NITROGEN 13 mg/dL (7-20); CALCIUM 9.6 mg/dL (8.4-10.2); CARBON DIOXIDE 26 mmol/L (22-30); CHLORIDE 103 mmol/L (98-107); GLUCOSE 95 mg/dL (75-110); POTASSIUM 3.9 mmol/L (3.6-5.0); TOTAL PROTEIN 7.6 g/dL (6.3-8.2)
--- NOTE | 2019-08-18 22:15 | RADIOLOGY REPORT (SQ) ---
EXAM DESCRIPTION: US ABDOMEN LIMITED COMPLETED DATE/TME: 08/18/2019 20:57 CLINICAL HISTORY: 24 years, Female, ruq epigastric pain COMPARISON: 11/19/2017 ultrasound TECHNIQUE: Limited right upper quadrant ultrasound LIMITATIONS: None. FINDINGS: Echogenic appearance to the liver suggesting fatty infiltrative change. No focal liver lesions. The gallbladder is contracted, limiting its evaluation. No definitive gallstones or gallbladder wall thickening. Negative sonographic Mcbride sign. CBD measures 5 mm. Slice pancreas, abdominal aorta, inferior vena cava, right kidney unremarkable. No ascites IMPRESSION: Fatty infiltrative change to the liver. The gallbladder is contracted. copyright 2010 [employer]- All Rights Reserved
[2019-08-18] MEDS ORDERED: FAMOTIDINE 20 MG TABLET PO ONE (23:01)
--- NOTE | 2019-08-18 23:01 | ER Document Report ---
ED GI/ - General Chief Complaint: Flank Pain Stated Complaint: ABDOMINAL PAIN/BACK PAIN Time Seen by Provider: 08/18/19 20:53 Primary Care Provider: DIANNA SCHULER MD [ACTIVE STAFF] - Follow up as needed Mode of Arrival: Ambulatory Notes: RME NOTE: 24-year-old female presents emergency department with complaints of right flank right upper quad abdominal epigastric pain for the past 2 weeks. Reports it hurts more after she eats. Denies fever vomiting diarrhea. Reports voiding and bowel movements normal. Right upper quad epigastric area tender to palpate. Abdomen soft. MY HPI: Upon my examination of the patient she states this burning sensation in her epigastric region and right upper quadrant is gone. Patient's denying any dysuria or vaginal discharge. She is denying any current nausea, vomiting, diarrhea. She is denying any fevers. States she has no medical problems, takes no daily medications, has an allergy to penicillin, is denying any surgical history. TRAVEL OUTSIDE OF THE [place] IN LAST 30 DAYS: No - Related Data Allergies/Adverse Reactions: Penicillins Allergy (Verified 08/08/18 00:09) Past Medical History - General Information source: Patient - Social History Smoking Status: Never Smoker Chew tobacco use (# tins/day): No Drug Abuse: None Family History: Reviewed & Not Pertinent, Other - hemophilia Patient has suicidal ideation: No Patient has homicidal ideation: No - Past Medical History Cardiac Medical History: Denies: Hx Coronary Artery Disease, Hx Heart Attack, Hx Hypertension Pulmonary Medical History: Denies: Hx Asthma, Hx Bronchitis, Hx COPD, Hx Pneumonia Neurological Medical History: Denies: Hx Cerebrovascular Accident, Hx Seizures Renal/ Medical History: Denies: Hx Peritoneal Dialysis Musculoskeletal Medical History: Denies Hx Arthritis - Immunizations Immunizations up to date: Yes Hx Diphtheria, Pertussis, Tetanus Vaccination: Yes Review of Systems - Review of Systems Constitutional: denies: Fever EENT: No symptoms reported Cardiovascular: No symptoms reported Respiratory: No symptoms reported Gastrointestinal: See HPI Genitourinary: See HPI Female Genitourinary: No symptoms reported Musculoskeletal: No symptoms reported. denies: Back pain Skin: No symptoms reported Hematologic/Lymphatic: No symptoms reported Neurological/Psychological: No symptoms reported Physical Exam - Vital signs Vitals: Temp Pulse Resp BP Pulse Ox 98.1 F 95 20 109/74 100 08/18/19 20:53 08/18/19 20:53 08/18/19 20:53 08/18/19 20:53 08/18/19 20:53 - Notes Notes: GENERAL: Alert, interacts well. No acute distress. HEAD: Normocephalic, atraumatic. EYES: Pupils equal, round, and reactive to light. Extraocular movements intact. ENT: Oral mucosa moist, tongue midline. NECK: Full range of motion. Supple. Trachea midline. LUNGS: Clear to auscultation bilaterally, no wheezes, rales, or rhonchi. No respiratory distress. HEART: Regular rate and rhythm. No murmur ABDOMEN: Soft, non-tender. Non-distended. Bowel sounds present in all 4 quadrants. EXTREMITIES: Moves all 4 extremities spontaneously. No edema, normal radial and dorsalis pedis pulses bilaterally. No cyanosis. BACK: no cervical, thoracic, lumbar midline tenderness. No saddle anesthesia, normal distal neurovascular exam. No CVA tenderness noted bilaterally. NEUROLOGICAL: Alert and oriented x3. Normal speech. cranial nerves II through XII grossly intact. PSYCH: Normal affect, normal mood. SKIN: Warm, dry, normal turgor. No rashes or lesions noted. Course - Re-evaluation Re-evalutation: 08/18/19 22:58 Laboratory 08/18/19 08/18/19 08/18/19 21:01 21:01 21:01 WBC 11.0 H RBC 4.44 Hgb 13.2 Hct 38.9 MCV 88 MCH 29.8 MCHC 34.0 RDW 13.7 Plt Count 315 Lymph % (Auto) 28.0 [place] % (Auto) 6.9 Eos % (Auto) 0.4 Baso % (Auto) 0.6 Absolute Neuts (auto) 7.0 Absolute Lymphs (auto) 3.1 Absolute Monos (auto) 0.8 Absolute Eos (auto) 0.0 Absolute Basos (auto) 0.1 Seg Neutrophils % 64.1 Sodium 138.9 Potassium 3.9 Chloride 103 Carbon Dioxide 26 Anion Gap 10 BUN 13 Creatinine 0.65 Est GFR ( Amer) > 60 Est GFR (MDRD) Non-Af > 60 Glucose 95 Calcium 9.6 Total Bilirubin 0.3 Direct Bilirubin 0.1 Neonat Total Bilirubin Not Reportable Neonat Direct Bilirubin Not Reportable Neonat Indirect Bili Not Reportable AST 15 ALT 14 Alkaline Phosphatase 88 Total Protein 7.6 Albumin 4.5 Lipase 83.3 Urine Color YELLOW Urine Appearance CLEAR Urine pH 6.0 Ur Specific [place] 1.017 Urine Protein NEGATIVE Urine Glucose (UA) NEGATIVE Urine Ketones NEGATIVE Urine Blood NEGATIVE Urine Nitrite NEGATIVE Urine Bilirubin NEGATIVE Urine Urobilinogen NEGATIVE Ur Leukocyte Esterase NEGATIVE Urine WBC (Auto) 1 Urine RBC (Auto) 0 Urine Bacteria (Auto) TRACE Squamous Epi Cells Auto <1 Urine Mucus (Auto) RARE Urine Ascorbic Acid NEGATIVE Urine HCG, Qual NEGATIVE Abdomen Ultrasound 08/18/19 20:57 IMPRESSION: Fatty infiltrative change to the liver. The gallbladder is contracted. copyright 2010 [employer]- All Rights Reserved Upon my examination the patient her abdominal exam is benign. She is denying any pain. States slight intermittent burning sensation in her epigastric region. I discussed with her likely diagnosis of gastritis. Discussed need for close follow-up with primary care provider and gastroenterology. I have given the patient Pepcid in the emergency department. Patient is stable for discharge. - Vital Signs Vital signs: Temp Pulse Resp BP Pulse Ox 98.1 F 95 20 109/74 100 08/18/19 20:53 08/18/19 20:53 08/18/19 20:53 08/18/19 20:53 08/18/19 20:53 - Laboratory Result Diagrams: 08/18/19 21:01 08/18/19 21:01 Laboratory results interpreted by me: 08/18/19 21:01 WBC 11.0 H Discharge - Discharge Clinical Impression: Epigastric abdominal pain Gastritis Qualifiers: Gastritis type: unspecified gastritis Chronicity: acute Gastritis bleeding: without bleeding Qualified Code(s): K29.00 - Acute gastritis without bleeding Abdominal pain Qualifiers: Abdominal location: right upper quadrant Qualified Code(s): R10.11 - Right upper quadrant pain Condition: Stable Disposition: HOME, SELF-CARE Instructions: Abdominal Pain ([facility]), Gastritis ([facility]) Additional Instructions: As we discussed you have been seen and treated in the emergency department for your epigastric and right upper quadrant abdominal pain. This is likely due to acid indigestion. Please take medications as prescribed. Please follow-up with your primary care provider in the next 12 to 24 hours. Please also follow-up with gastroenterology. Phone numbers will be provided in this packet. Please return to the emergency room for any concerns. Prescriptions: Famotidine [Pepcid 40 mg Tablet] 20 mg PO BID #60 tablet Referrals: DIANNA SCHULER MD [ACTIVE STAFF] - Follow up as needed
[2019-08-18 23:16] VITALS: BP 114/65
== END 2019-08-18 23:07 | disposition home or self-care (01) ==
LOC: ER 20:46
DX: R10.13 Epigastric pain (principal); R10.11 Right upper quadrant pain; K29.00 Acute gastritis without bleeding; Z88.0 Allergy status to penicillin
CPT/HCPCS: 36415; 76705; 80053; 81001; 81025; 83690; 85025

== ENCOUNTER 2019-11-21 18:56 | Emergency (ER) | payer SELFPAY ==
--- NOTE | 2019-11-21 19:16 | ER Document Report ---
ED Medical Screen (RME) - General Chief Complaint: Abdominal Pain Stated Complaint: ABDOMINAL PAIN,RIGHT SHOULDER PAIN Time Seen by Provider: 11/21/19 19:14 Notes: 24-year-old female presents with chest pain that radiates into her right shoulde r, left flank pain, and abdominal pain. Patient states chest pain and left flank pain started recently and states abdominal pain has been ongoing for 6 weeks. Patient was seen in the ER about a month ago for abdominal pain. Patient states chest pain hurts worse when she takes a deep breath. Patient initially had nausea/vomiting/diarrhea with the abdominal pain when it first started but states that she does not have any now. Lungs clear to auscultation bilaterally. Regular rate and rhythm. Abdomen soft diffusely tender. I have greeted and performed a rapid initial assessment of this patient. A comprehensive ED assessment and evaluation of the patient, analysis of test results and completion of the medical decision making process with be conducted by additional ED providers. TRAVEL OUTSIDE OF THE [place] IN LAST 30 DAYS: No - Related Data Allergies/Adverse Reactions: Penicillins Allergy (Verified 08/08/18 00:09) Past Medical History - Past Medical History Cardiac Medical History: Denies: Hx Coronary Artery Disease, Hx Heart Attack, Hx Hypertension Pulmonary Medical History: Denies: Hx Asthma, Hx Bronchitis, Hx COPD, Hx Pneumonia Neurological Medical History: Denies: Hx Cerebrovascular Accident, Hx Seizures Renal/ Medical History: Denies: Hx Peritoneal Dialysis Musculoskeltal Medical History: Denies Hx Arthritis - Immunizations Immunizations up to date: Yes Hx Diphtheria, Pertussis, Tetanus Vaccination: Yes
--- NOTE | 2019-11-21 20:04 | RADIOLOGY REPORT (SQ) ---
EXAM DESCRIPTION: CHEST 2 VIEWS COMPLETED DATE/TIME: 11/21/2019 7:53 pm REASON FOR STUDY: chest pain COMPARISON: None. EXAM PARAMETERS: NUMBER OF VIEWS: two views TECHNIQUE: Digital Frontal and Lateral radiographic views of the chest acquired. RADIATION DOSE: NA LIMITATIONS: none FINDINGS: LUNGS AND PLEURA: No opacities, masses or pneumothorax. No pleural effusion. MEDIASTINUM AND HILAR STRUCTURES: No masses or contour abnormalities. HEART AND VASCULAR STRUCTURES: Heart normal size. No evidence for failure. BONES: No acute findings. HARDWARE: None in the chest. OTHER: No other significant finding. IMPRESSION: NO ACUTE RADIOGRAPHIC FINDING IN THE CHEST. TECHNICAL DOCUMENTATION: JOB ID: [id number] [id number] 2010 [employer]- All Rights Reserved Reading location - IP/workstation name: [email or web address]
--- NOTE | 2019-11-21 20:07 | ER Document Report ---
ED General - General Chief Complaint: Abdominal Pain Stated Complaint: ABDOMINAL PAIN,RIGHT SHOULDER PAIN Time Seen by Provider: 11/21/19 19:14 TRAVEL OUTSIDE OF THE [place] IN LAST 30 DAYS: No - HPI Notes: 24-year-old female who will have area with a chief complaint complaints of low back pain, intermittent dyspepsia intermittent cramping in chest and intermittent epigastric pain. Seen for similar complaints in August 2019 with work-up negative at that time including urinalysis, urine test, comprehensive metabolic profile, serum lipase and CBC. Also had gallbladder ultrasound at that time showing no stones or acute inflammatory changes. She is never gone back to see a primary care doctor. Her weight is stable. She is eating and drinking normally. Bowel movements and urination are normal. She works as a tech in a dialysis center. Denies use of tobacco, alcohol or drugs. No prior surgery. No hospitalizations or serious illnesses. She is 1 para 1. Allergic to penicillin. - Related Data Allergies/Adverse Reactions: Penicillins Allergy (Verified 08/08/18 00:09) Past Medical History - General Information source: Patient - Social History Smoking Status: Never Smoker Family History: Reviewed & Not Pertinent, Other - hemophilia Patient has suicidal ideation: No Patient has homicidal ideation: No - Past Medical History Cardiac Medical History: Denies: Hx Coronary Artery Disease, Hx Heart Attack, Hx Hypertension Pulmonary Medical History: Denies: Hx Asthma, Hx Bronchitis, Hx COPD, Hx Pneumonia Neurological Medical History: Denies: Hx Cerebrovascular Accident, Hx Seizures Renal/ Medical History: Denies: Hx Peritoneal Dialysis Musculoskeletal Medical History: Denies Hx Arthritis - Immunizations Immunizations up to date: Yes Hx Diphtheria, Pertussis, Tetanus Vaccination: Yes Review of Systems - Review of Systems Notes: Constitutional: Negative for fever. HENT: Negative for sore throat. Eyes: Negative for visual changes. Cardiovascular: Negative for chest pain. Respiratory: Negative for shortness of breath. Gastrointestinal: As per HPI. Genitourinary: Negative for dysuria. Musculoskeletal: As per HPI. Skin: Negative for rash. Neurological: Negative for headaches, weakness or numbness. 10 point ROS negative except as marked above and in HPI. Physical Exam - Vital signs Vitals: Temp Pulse Resp BP Pulse Ox 98.3 F 80 16 103/69 99 11/21/19 19:12 11/21/19 19:12 11/21/19 19:12 11/21/19 19:12 11/21/19 19:12 - Notes Notes: GENERAL: Well-developed well-nourished appearing in no acute distress. SKIN: Good turgor no rashes. HEAD: Normocephalic atraumatic. EYES: PERRLA. EOMI. Conjunctivae and sclerae clear. EARS: CANALS AND TMS CLEAR. NOSE: CLEAR. MOUTH: Moist mucosa. Good dentition. No stridor or edema. No drooling. NECK: Supple. No masses or thyromegaly. No adenopathy. Carotids 2+ without bruits. No JVD. BACK: Symmetrical without tenderness. CHEST: Respirations unlabored. Breath sounds clear and symmetrical. HEART: Regular rhythm. No murmur gallop or rub. ABDOMEN: Soft nontender without masses, organomegaly or rebound. Bowel sounds normally active. No bruits. GENITALIA: Deferred. EXTREMITIES: No edema. No calf tenderness. Cap refill less than 1.5 seconds. Dorsalis pedis and posterior tibial pulses 3+ and symmetrical. NEUROLOGICAL: GCS 15. Alert and oriented x3. Normal gait. Fluent speech. Cranial nerves II through XII intact. Sensorimotor and cerebellar normal. Normal tone. PSYCHIATRIC: Appropriate affect. Course - Re-evaluation Re-evalutation: 11/21/19 21:40 Urinalysis shows minimal pyuria suggestive of UTI with otherwise unremarkable labs. She has a normal EKG and a normal chest x-ray. We will treat her empirically with Macrobid for UTI and refer her to primary care for follow-up. - Vital Signs Vital signs: Temp Pulse Resp BP Pulse Ox 98.3 F 80 16 103/69 99 11/21/19 19:12 11/21/19 19:12 11/21/19 19:12 11/21/19 19:12 11/21/19 19:12 - Laboratory Result Diagrams: 11/21/19 20:10 11/21/19 20:10 Laboratory results interpreted by me: 11/21/19 20:28 Leukocyte Esterase Rfl SMALL H - Diagnostic Test Radiology reviewed: Reports reviewed - Normal chest x-ray per radiologist. - EKG Interpretation by Me Additional EKG results interpreted by me: 11/21/19 20:06 Twelve-lead EKG from 1946 hrs. reviewed contemporaneously by me demonstrating normal sinus rhythm at a rate of 75 and QRS axis of 61 degrees. Normal intervals. No acute ST/T wave changes. Discharge - Discharge Clinical Impression: Abdominal pain Qualifiers: Abdominal location: unspecified location Qualified Code(s): R10.9 - Unspecified abdominal pain Urinary tract infection Qualifiers: Urinary tract infection type: site unspecified Hematuria presence: without hematuria Qualified Code(s): N39.0 - Urinary tract infection, site not specified Condition: Stable Disposition: HOME, SELF-CARE Instructions: Abdominal Pain ([facility]), Urinary Tract Infection ([facility]) Additional Instructions: Return here as needed for new or worsening symptoms: Pain that is worsening or unimproved Uncontrolled vomiting High fever or shaking chills Overall worsening Take prescribed medication as directed. Follow-up with referral clinic/physician. Prescriptions: Nitrofurantoin Monohyd/M-Cryst [Macrobid 100 mg Capsule] 100 mg PO BID 3 Days #6 cap Referrals: [facility] [Provider Group] - Follow up as needed
[2019-11-21 20:21] LABS: ABSOLUTE BASOPHILS # (AUTO) 0.1 10^3/uL (0.0-0.2); ABSOLUTE EOSINOPHILS # (AUTO) 0.1 10^3/uL (0.0-0.6); ABSOLUTE LYMPHOCYTES (AUTO) 2.8 10^3/uL (0.5-4.7); ABSOLUTE MONOCYTES (AUTO) 0.9 10^3/uL (0.1-1.4); ABSOLUTE NEUT (AUTO) 4.5 10^3/uL (1.7-8.2); BASOPHILS % (AUTO) 0.6 % (0-2); EOSINOPHILS % (AUTO) 1.1 % (0-6); HEMATOCRIT 38.9 % (36.0-47.0); HEMOGLOBIN 13.1 g/dL (12.0-15.5); LYMPHOCYTES % (AUTO) 33.7 % (13-45); MEAN CORPUSCULAR HEMOGLOBIN 29.7 pg (27.0-33.4); MEAN CORPUSCULAR HGB CONC 33.8 g/dL (32.0-36.0); MEAN CORPUSCULAR VOLUME 88 fl (80-97); MONOCYTES % (AUTO) 10.5 % (3-13); PLATELET COUNT 298 10^3/uL (150-450); RED BLOOD COUNT 4.42 10^6/uL (3.72-5.28); RED CELL DISTRIBUTION WIDTH 12.9 % (11.5-14.0); SEGMENTED NEUTROPHILS % (AUTO) 54.1 % (42-78); TOTAL CELLS COUNTED % (AUTO) 100 %; WHITE BLOOD COUNT 8.3 10^3/uL (4.0-10.5)
[2019-11-21 20:41] LABS: ALKALINE PHOSPHATASE 53 U/L (38-126); ANION GAP 6 (5-19); ASPARTATE AMINO TRANSFERASE 17 U/L (14-36); BILIRUBIN,TOTAL 0.3 mg/dL (0.2-1.3); BLOOD UREA NITROGEN 14 mg/dL (7-20); CARBON DIOXIDE 28 mmol/L (22-30); CHLORIDE 104 mmol/L (98-107); GLUCOSE 82 mg/dL (75-110); POTASSIUM 4.7 mmol/L (3.6-5.0); TOTAL PROTEIN 6.9 g/dL (6.3-8.2)
[2019-11-21 20:43] LABS: APPEARANCE,URINE CLOUDY; BILIRUBIN,URINE NEGATIVE (NEGATIVE); COLOR,URINE YELLOW; GLUCOSE, URINE NEGATIVE (NEGATIVE); KETONES,URINE NEGATIVE (NEGATIVE); PROTEIN,URINE NEGATIVE (NEGATIVE); URINE SPECIFIC GRAVITY 1.023; UROBILINOGEN,URINE NEGATIVE mg/dL (<2.0)
--- NOTE | 2019-11-21 21:18 | EKG REPORT ---
SEVERITY:- NORMAL ECG - NORMAL SINUS RHYTHM 75. : Confirmed by: Lenny Alvarez MD 21-Nov-2019 21:17:31
[2019-11-21 21:57] VITALS: BP 101/66
== END 2019-11-21 21:57 | disposition home or self-care (01) ==
LOC: ER 18:56
DX: N39.0 Urinary tract infection, site not specified (principal); R10.9 Unspecified abdominal pain; M54.5 Low back pain; R10.13 Epigastric pain; Z88.0 Allergy status to penicillin
CPT/HCPCS: 36415; 71046; 80053; 81001; 83690; 84484; 84703; 85025; 87086; 93005; 93010; 99284